=== PATIENT | female | born 1975 | race Caucasian/White ===

== ENCOUNTER 2023-08-31 22:27 | Emergency (ER) | payer OTHER | END 2023-09-01 00:25 | disposition home or self-care (01) | LOC: JP.ED 22:27 | DX: S61.012A Laceration without foreign body of left thumb without damage to nail, initial encounter (principal); Z79.899 Other long term (current) drug therapy; Z88.5 Allergy status to narcotic agent; Z88.6 Allergy status to analgesic agent; W26.0XXA Contact with knife, initial encounter | CPT/HCPCS: 12001; 99282 ==